=== PATIENT | female | born 1975 | race Two or more races ===

== ENCOUNTER 2025-10-10 09:55 | Emergency (ER) | payer MEDICAID, OTHER ==
[~2025-10-10] VITALS: Ht 170.2 cm; Wt 64.0 kg
--- NOTE | 2025-10-10 10:42 | ED.PDOC ---
History of Present Illness(SKN HPI Comments 49-year-old female who presents to the ED for chief complaint of animal bite. The patient states she was at friend's house and states she went outside or walker dog and states a pack of three dog attacked her. Patient has sustained a puncture food to the right and left arms and came to the ED for evaluation. The patient in the ED had noted multiple puncture wounds on the right and left arms with the otherwise noted bleeding controlled. The patient otherwise has stable vitals in the ED. The patient denies any other symptoms. Chief Complaint: Animal Bite Time Seen by MD: 10:32 History of Present Illness: Medications, Allergies Allergies: Coded Allergies: Sulfa Antibiotics (Verified Allergy, Unknown, 10/10/25) Information Source: Patient, Emergency Med Personnel Mode of Arrival: EMS Brought in by: EMS Past Medical History PAST MEDICAL HISTORY: Denies Surgical History: Denies all surgeries UTILIZATION REVIEW COORDINATOR History: Denies all UTILIZATION REVIEW COORDINATOR Hx Family History Family History: Reviewed,noncontributory to illness Social History Smoker: Non-Smoker Alcohol: Denies ETOH Use Drugs: Denies Drug Use Constitutional: denies: chills, diaphoresis, fatigue, fever, malaise, sweats, weakness, others EENTM: denies: blurred vision, double vision, ear bleeding, ear discharge, ear drainage, ear pain, ear ringing, eye pain, eye redness, hearing loss, mouth pain, mouth swelling, nasal discharge, nose bleeding, nose congestion, nose pain, photophobia, tearing, throat pain, throat swelling, voice changes, others Respiratory: denies: cough, hemoptysis, orthopnea, SOB at rest, shortness of breath, SOB with excertion, stridor, wheezing, others Cardiovascular: denies: chest pain, dizzy spells, diaphoresis, Dyspnea on exertion, edema, irregular heart beat, left arm pain, lightheadedness, palpitations, PND, syncope, others Gastrointestinal: denies: abdomen distended, abdominal pain, blood streaked bowels, constipated, diarrhea, dysphagia, difficulty swallowing, hematemesis, melena, nausea, poor appetite, poor fluid intake, rectal bleeding, rectal pain, vomiting, others Genitourinary: denies: abnormal vagina bleeding, burning, dyspareunia, dysuria, flank pain, frequency, hematuria, incontinence, pain, , vagina discharge, urgency, others Neurological: denies: dizziness, fainting, headache, left sided numbness, left sided weakness, numbness, paresthesia, pre-existing deficit, right sided numbness, right sided weakness, seizure, speech problems, tingling, tremors, weakness, others Musculoskeletal: denies: back pain, gout, joint pain, joint swelling, muscle pain, muscle stiffness, neck pain, others Integumetry: reports: bruises, wounds (Left and right arm); denies: change in color, change in hair/nails, dryness, laceration, lesions, lumps, rash, others Allergic/Immunocompromised: denies: Difficulty Healing, Frequent Infections, Hives, Itching, others Hematologic/Lymphatic: denies: anemia, blood clots, easy bleeding, easy bruising, swollen glands, others Endocrine: denies: excessive hunger, excessive sweating, excessive thirst, excessive urination, flushing, intolerance to cold, intolerance to heat, unexplained weight gain, unexplained weight loss, others Psychiatric: denies: anxiety, bipolar disorder, depression, hopeless, panic disorder, schizophrenia, sleepless, suicidal, others All Other Systems: Reviewed and Negative Physical Exam General Appearance: No Apparent Distress, Normal HEENT: Normal ENT Inspection, Pharynx Normal, TMs Normal Neck: Full Range of Motion, Non-Tender, Normal, Normal Inspection Respiratory: Chest Non-Tender, Lungs Clear, No Accessory Muscle Use, No Respiratory Distress, Normal Breath Sounds Cardiovascular: No Edema, No JVD, No Murmur, No Gallop, Normal Peripheral Pulses, Regular Rate/Rhythm Breast Exam: Deferred Gastrointestinal: No Organomegaly, Non Tender, No Pulsatile Mass, Normal Bowel Sounds, Soft Genitalia: Deferred Pelvic: Deferred Rectal: Deferred Extremities: No calf tenderness, Normal capillary refill, Normal inspection, Normal range of motion, Non-tender, No pedal edema Musculoskeletal : Apperance: Normal Neurologic: Alert, it security manager II-XII nml as Tested, No Motor Deficits, Normal Affect, Normal Mood, No Sensory Deficits Cerebellar Function: Normal Reflexes: Normal Skin: Wounds (Right forearm two puncture wounds to distal forearm, two puncture wounds to the lateral epicondyle of right forearm has two puncture wounds endorsed her forearm) Lymphatic: No Adenopathy Was a procedure done? Was a procedure done?: No Differential Diagnosis (INTG) Differential Diagnosis: Abrasion, Cellulitis, Puncture Wound, Other (Animal bitw) Abscess: Abscess, Bacteremia, Cellulitis X-Ray, Labs, Meds, VS Vital Signs Date Time Temp Pulse Resp B/P (MAP) Pulse Ox O2 Delivery O2 Flow Rate FiO2 10/10/25 11:28 93 17 148/78 10/10/25 10:05 98.2 79 16 137/60 99 98.2 Current Medications Medications (Trade) Dose Ordered Sig/Glenis Route Start Time Stop Time Status Last Admin Diphtheria/ Tetanus/Acell Pertussis (Boostrix T-Dap) 0.5 ml ONCE ONCE IM 10/10/25 10:45 10/10/25 10:46 DC 10/10/25 11:32 Neomycin/ Polymyxin/ Bacitracin (Triple Antibiotic) 1 applic ONCE ONCE TOP 10/10/25 10:45 10/10/25 10:46 DC 10/10/25 11:21 Morphine Sulfate 4 mg ONCE ONCE IM 10/10/25 11:15 10/10/25 11:16 DC 10/10/25 11:28 [place] [address] Ph: [phone] DIAGNOSTIC IMAGING Diagnostic Imaging Report : [id number] Signed PATIENT: MANDO MOCTEZUMAACCT: [id number] UNIT: [id number] : 1975 LOC: ER ROOM / BED: / AGE / SEX: 49 / F ADM STATUS: REG ER SERVICE 1032 ORDERING PHYSICIAN: ALEXANDRA ALFARO NP PROCEDURE(s): RHAN - R HAND 3 VIEW XRAY REASON: dog bite. ORDER NUMBER(s): [id number], ACCESSION NUMBER(s): [id number] Indication: dog bite. Technique: XY R FOREARM XRAY, XY R HAND 3 VIEW XRAYXY Comparison: None FINDINGS/IMPRESSION: No radiographic evidence for acute fracture or dislocation. Extensive soft tissue emphysema and edema within the right forearm. No radiopaque foreign body seen. The soft tissue emphysema is most pronounced along the volar aspect of the right forearm tissues Soft tissue emphysema and edema along the dorsal aspect of the right wrist, hand. ATED BY: SHAKEEL WILKINSON MD DICTATED DATE/TIME: 10/10/251227 SIGNED BY: SHAKEEL WILKINSON MD SIGNED DATE/TIME: 10/10/251227 CC: [place] [address] Ph: [phone] DIAGNOSTIC IMAGING Diagnostic Imaging Report : [id number] Signed PATIENT: ADRY MOCTEZUMAT: [id number] UNIT: [id number] : 1975 LOC: ER ROOM / BED: / AGE / SEX: 49 / F ADM STATUS: REG ER SERVICE 103 ORDERING PHYSICIAN: ALEXANDRA ALFARO NP PROCEDURE(s): LFOR - L FOREARM XRAY REASON: dog bite. ORDER NUMBER(s): [id number], ACCESSION NUMBER(s): [id number] Indication: dog bite. Technique: XY L FOREARM XRAYXY Comparison: None FINDINGS/IMPRESSION: No radiographic evidence for acute fracture or dislocation. Soft tissue edema along the mid ulnar aspect of the left forearm. No radiopaque foreign body. ATED BY: SHAKEEL WILKINSON MD DICTATED DATE/TIME: 10/10/251226 SIGNED BY: SHAKEEL WILKINSON MD SIGNED DATE/TIME: 10/10/251226 CC: [place] [address] Ph: [phone] DIAGNOSTIC IMAGING Diagnostic Imaging Report : [id number] Signed PATIENT: ADRY MOCTEZUMAT: [id number] UNIT: [id number] : 1975 LOC: ER ROOM / BED: / AGE / SEX: 49 / F ADM STATUS: REG ER SERVICE 1032 ORDERING PHYSICIAN: ALEXANDRA ALFARO NP PROCEDURE(s): RFOR - R FOREARM XRAY REASON: dog bite. ORDER NUMBER(s): [id number], ACCESSION NUMBER(s): [id number] Indication: dog bite. Technique: XY R FOREARM XRAY, XY R HAND 3 VIEW XRAYXY Comparison: None FINDINGS/IMPRESSION: No radiographic evidence for acute fracture or dislocation. Extensive soft tissue emphysema and edema within the right forearm. No radiopaque foreign body seen. The soft tissue emphysema is most pronounced along the volar aspect of the right forearm tissues Soft tissue emphysema and edema along the dorsal aspect of the right wrist, hand. ATED BY: SHAKEEL WILKINSON MD DICTATED DATE/TIME: 10/10/251227 SIGNED BY: SHAKEEL WILKINSON MD SIGNED DATE/TIME: 10/10/251227 CC: X-Ray, Labs, Meds, VS Comment Patient arrives alert and oriented, ABC's intact, afebrile, vital signs stable, saturating well in room air Diagnostic imaging ordered by me and results interpreted by radiology : Left forearm x-ray, right forearm x-ray, right hand x-ray Labs in the ED showed (pertinent+ and then pertinent-) Patient was given: Tetanus toxoid 0.5 mg IM, morphine 4 mg, neomycin bacitracin one application topical. Tolerated medications with no adverse reaction. Additional MDM Review of External, Non-ED records: External records reviewed. Discussion with independent historian (EMS, family) history obtained from the patient/parents (if applicable) at bedside Chronic conditions affecting care: None Social determinants of health affecting care: None Consideration of admission (observation or admission): I considered escalation of care to admission for this patient, however given the reassuring workup, the patient is safe for outpatient management. Discussion with the Radiology: No Tests considered but not performed: Prescription medication considered but not given: 12 lead EKG interpretation: Time of 1ST Reevaluation: 11:05 Reevaluation 1ST: Unchanged Patient Education/Counseling: Diagnosis, Treatment Family Education/Counseling: No Family Present SEPSIS Sepsis Screen Date sepsis recognized/suspect: Oct 10, 2025 Time Sepsis recognized/suspect: 1000 Recent Procedure: No On Antibiotic Therapy: No Respiratory Rate >20: No Heart Rate >90: No Temp<36 C (96.8 F) or >38.3 C: No SBP <90 or MAP <65 mmHG: No New Acute Mental Status Change: No Is the patient on CPAP, BIPAP,: No Physician Orders R Forearm Xray (10/10/25 10:32) L Forearm Xray (10/10/25 10:32) R Hand 3 View Xray (10/10/25 10:32) Cleanse Wound With Mild Soap A (10/10/25 10:32) Cleanse Wound With Ns (10/10/25 10:32) Non-Adherent Dressing (10/10/25 10:32) Vital Signs Date Time Temp Pulse Resp B/P (MAP) Pulse Ox O2 Delivery O2 Flow Rate FiO2 10/10/25 11:28 93 17 148/78 10/10/25 10:05 98.2 79 16 137/60 99 98.2 Medications Medications Dose Ordered Sig/Glenis Route Start Time Stop Time Status Last Admin Dose Admin Diphtheria/ Tetanus/Acell Pertussis 0.5 ml ONCE ONCE IM 10/10/25 10:45 10/10/25 10:46 DC 10/10/25 11:32 Morphine Sulfate 4 mg ONCE ONCE IM 10/10/25 11:15 10/10/25 11:16 DC 10/10/25 11:28 Neomycin/ Polymyxin/ Bacitracin 1 applic ONCE ONCE TOP 10/10/25 10:45 10/10/25 10:46 DC 10/10/25 11:21 Departure 1 Departure Time of Disposition: 12:42 Impression: Primary Impression: Dog bite Qualified Codes: W54.0XXA - Bitten by dog, initial encounter Disposition: HOME / SELF CARE / HOMELESS Condition: Fair e-Prescriptions Naproxen (Naproxen) 500 Mg Tab 500 MG PO BIDP PRN for 10 Days, #20 TAB 0 Refills Prov: ALEXANDRA ALFARO NP 10/10/25 Amoxicillin & Pot Clavulanate (AUGMENTIN TABLET) 875 Mg Tb 875 MG PO BID for 7 Days, #14 TAB 0 Refills Prov: ALEXANDRA ALFARO NP 10/10/25 Critical Care Note Critical Care Time?: No Stability Stability form required: No Heart Score Heart Score: Heart Score Response (Comments) Value History N/A 0 EKG N/A 0 Age N/A 0 Risk Factors N/A 0 Troponin N/A 0 Total 0 I personally scribed for ALEXANDRA ALFARO NP ([facility]ICK) on 10/10/25 at 10:42. Electronically submitted by Daniela Recinos ([email or web address]). I personally scribed for ALEXANDRA ALFARO NP (DICK) on 10/10/25 at 10:42. Electronically submitted by Daniela Recinos ([facility]). I personally scribed for ALEXANDRA ALFARO NP ([employer]) on 10/10/25 at 11:39. Electronically submitted by Daniela Recinos ([facility]). I personally scribed for ALEXANDRA ALFARO NP ([employer]) on 10/10/25 at 12:38. Electronically submitted by Daniela Recinos ([email or web address]). ALEXANDRA ALFARO NP Oct 10, 2025 10:42
[2025-10-10] MEDS ORDERED: MORPHINE SULFATE 4 MG/ML SYR/VIAL IV ONE (10:45)
[2025-10-10] MEDS: NEOMYCIN-BACITRACIN-POLYM UNITDOSE PKG TOP OINT TOP ONE (11:21)
[2025-10-10] MEDS: MORPHINE SULFATE 4 MG/ML SYR/VIAL IM ONE (11:28)
[2025-10-10] MEDS: TETANUS-DIPTH-ACEL PERTUSSIS 0.5ML SYR Tdap IM ONE (11:32)
--- NOTE | 2025-10-10 12:24 | DVH ---
Indication: dog bite. Technique: XY L FOREARM XRAYXY Comparison: None FINDINGS/IMPRESSION: No radiographic evidence for acute fracture or dislocation. Soft tissue edema along the mid ulnar aspect of the left forearm. No radiopaque foreign body.
--- NOTE | 2025-10-10 12:25 | DVH ---
Indication: dog bite. Technique: XY R FOREARM XRAY, XY R HAND 3 VIEW XRAYXY Comparison: None FINDINGS/IMPRESSION: No radiographic evidence for acute fracture or dislocation. Extensive soft tissue emphysema and edema within the right forearm. No radiopaque foreign body seen. The soft tissue emphysema is most pronounced along the volar aspect of the right forearm tissues Soft tissue emphysema and edema along the dorsal aspect of the right wrist, hand.
[2025-10-10] MEDS ORDERED: NAPR-746 PO (12:43)
[2025-10-10] MEDS ORDERED: AUG875T PO (12:43)
[2025-10-10 13:07] VITALS: BP 132/89; PULSE 68; RESP 16; TEMP 98.7; O2SAT 97
== END 2025-10-10 13:09 | disposition home or self-care (01) ==
LOC: ER 09:55 → EDBD 09:55 → ER 13:09
DX: S51.831A Puncture wound without foreign body of right forearm, initial encounter (principal); Z88.2 Allergy status to sulfonamides; W54.0XXA Bitten by dog, initial encounter; Y93.89 Activity, other specified; Y92.89 Other specified places as the place of occurrence of the external cause; Y99.8 Other external cause status
CPT/HCPCS: 73090; 73130; 90471; 90715; 96372; 99284; J2270

== ENCOUNTER 2025-10-10 14:11 | Emergency (ER) | payer MEDICAID ==
[~2025-10-10] VITALS: Ht 162.6 cm; Wt 65.3 kg
[~2025-10-10 14:11] MED LIST: AUG875T PO; NAPR-746 PO
--- NOTE | 2025-10-10 15:03 | ED.PDOC ---
History of Present Illness(SKN HPI Comments Pleasant 49-year-old female that presents again for a wound check to the right upper extremity. Patient requesting that the wounds be rewrapped as the dressings fell after the patient was discharged from the ER. No other complaint or concern Chief Complaint: Animal Bite Time Seen by MD: 14:44 History of Present Illness: Medications, Allergies Allergies: Coded Allergies: Sulfa Antibiotics (Verified Allergy, Unknown, 10/10/25) Home Meds Active Scripts Naproxen (Naproxen) 500 Mg Tab, 500 MG PO BIDP PRN for 10 Days, #20 TAB 0 Refills Prov:ALEXANDRA ALFARO NP 10/10/25 Amoxicillin & Pot Clavulanate (AUGMENTIN TABLET) 875 Mg Tb, 875 MG PO BID for 7 Days, #14 TAB 0 Refills Prov:ALEXANDRA ALFARO MACHINE OPERATOR FARMWORKER 10/10/25 Information Source: Patient Mode of Arrival: EMS Past Medical History PAST MEDICAL HISTORY: Denies Surgical History: Denies all surgeries INTERNAL MEDICINE VETERINARY TECHNICIAN History: Denies all INTERNAL MEDICINE VETERINARY TECHNICIAN Hx Family History Family History: Reviewed,noncontributory to illness Social History Smoker: Non-Smoker Alcohol: Denies ETOH Use Drugs: Denies Drug Use Constitutional: denies: chills, diaphoresis, fatigue, fever, malaise, sweats, weakness, others EENTM: denies: blurred vision, double vision, ear bleeding, ear discharge, ear drainage, ear pain, ear ringing, eye pain, eye redness, hearing loss, mouth pain, mouth swelling, nasal discharge, nose bleeding, nose congestion, nose pain, photophobia, tearing, throat pain, throat swelling, voice changes, others Respiratory: denies: cough, hemoptysis, orthopnea, SOB at rest, shortness of breath, SOB with excertion, stridor, wheezing, others Cardiovascular: denies: chest pain, dizzy spells, diaphoresis, Dyspnea on exertion, edema, irregular heart beat, left arm pain, lightheadedness, palpitations, PND, syncope, others Gastrointestinal: denies: abdomen distended, abdominal pain, blood streaked bowels, constipated, diarrhea, dysphagia, difficulty swallowing, hematemesis, melena, nausea, poor appetite, poor fluid intake, rectal bleeding, rectal pain, vomiting, others Genitourinary: denies: abnormal vagina bleeding, burning, dyspareunia, dysuria, flank pain, frequency, hematuria, incontinence, pain, , vagina discharge, urgency, others Neurological: denies: dizziness, fainting, headache, left sided numbness, left sided weakness, numbness, paresthesia, pre-existing deficit, right sided numbness, right sided weakness, seizure, speech problems, tingling, tremors, weakness, others Musculoskeletal: denies: back pain, gout, joint pain, joint swelling, muscle pain, muscle stiffness, neck pain, others Integumetry: denies: bruises, change in color, change in hair/nails, dryness, laceration, lesions, lumps, rash, wounds, others Allergic/Immunocompromised: denies: Difficulty Healing, Frequent Infections, Hives, Itching, others Hematologic/Lymphatic: denies: anemia, blood clots, easy bleeding, easy bruising, swollen glands, others Endocrine: denies: excessive hunger, excessive sweating, excessive thirst, excessive urination, flushing, intolerance to cold, intolerance to heat, unexplained weight gain, unexplained weight loss, others Psychiatric: denies: anxiety, bipolar disorder, depression, hopeless, panic disorder, schizophrenia, sleepless, suicidal, others All Other Systems: Reviewed and Negative Physical Exam General Appearance: No Apparent Distress, Normal HEENT: Normal ENT Inspection, Pharynx Normal, TMs Normal Neck: Full Range of Motion, Non-Tender, Normal, Normal Inspection Respiratory: Chest Non-Tender, Lungs Clear, No Accessory Muscle Use, No Respiratory Distress, Normal Breath Sounds Cardiovascular: No Edema, No JVD, No Murmur, No Gallop, Normal Peripheral Pulses, Regular Rate/Rhythm Breast Exam: Deferred Gastrointestinal: No Organomegaly, Non Tender, No Pulsatile Mass, Normal Bowel Sounds, Soft Genitalia: Deferred Pelvic: Deferred Rectal: Deferred Extremities: No calf tenderness, Normal capillary refill, Normal inspection, Normal range of motion, Non-tender, No pedal edema Musculoskeletal : Apperance: Normal Neurologic: Alert, skeins yarn examiner II-XII nml as Tested, No Motor Deficits, Normal Affect, Normal Mood, No Sensory Deficits Cerebellar Function: Normal Reflexes: Normal Skin: Dry, Normal Color, Warm Lymphatic: No Adenopathy Was a procedure done? Was a procedure done?: No Differential Diagnosis (INTG) Abscess: Abscess, Bacteremia, Cellulitis X-Ray, Labs, Meds, VS Vital Signs Date Time Temp Pulse Resp B/P (MAP) Pulse Ox O2 Delivery O2 Flow Rate FiO2 10/10/25 14:37 97.8 95 16 119/79 96 97.8 X-Ray, Labs, Meds, VS Comment Patient arrives alert and oriented, ABC's intact, afebrile, vital signs stable, saturating well in room air consumer services consultant consult Diagnostic imaging ordered by me and results interpreted by radiology : Labs in the ED showed (pertinent+ and then pertinent-) Patient was given:_. Tolerated medications with no adverse reaction. Additional MDM Review of External, Non-ED records: External records reviewed. Discussion with independent historian (EMS, family) history obtained from the patient/parents (if applicable) at bedside Chronic conditions affecting care: None Social determinants of health affecting care: None Consideration of admission (observation or admission): I considered escalation of care to admission for this patient, however given the reassuring workup, the patient is safe for outpatient management. Discussion with the Radiology: No Tests considered but not performed: Prescription medication considered but not given: 12 lead EKG interpretation: Time of 1ST Reevaluation: 15:00 Reevaluation 1ST: Unchanged Patient Education/Counseling: Diagnosis, Treatment Family Education/Counseling: No Family Present SEPSIS Sepsis Screen Date sepsis recognized/suspect: Oct 10, 2025 Time Sepsis recognized/suspect: 1421 Recent Procedure: No On Antibiotic Therapy: No Respiratory Rate >20: No Heart Rate >90: Yes Temp<36 C (96.8 F) or >38.3 C: No SBP <90 or MAP <65 mmHG: No New Acute Mental Status Change: No Is the patient on CPAP, BIPAP,: No Physician Orders * Gym Teacher Consult (10/10/25 ) Vital Signs Date Time Temp Pulse Resp B/P (MAP) Pulse Ox O2 Delivery O2 Flow Rate FiO2 10/10/25 14:37 97.8 95 16 119/79 96 97.8 Departure 1 Departure Time of Disposition: 15:03 Impression: Primary Impression: Visit for wound check Disposition: 01 HOME / SELF CARE / HOMELESS Condition: Stable Discharged With: Self Critical Care Note Critical Care Time?: No Stability Stability form required: No Heart Score Heart Score: Heart Score Response (Comments) Value History N/A 0 EKG N/A 0 Age N/A 0 Risk Factors N/A 0 Troponin N/A 0 Total 0 I personally scribed for ALEXANDRA ALFARO NP ([email or web address]) on 10/10/25 at 15:40. Electronically submitted by Daniela Recinos ([email or web address]). ALEXANDRA ALFARO NP Oct 10, 2025 15:03
[2025-10-10 16:29] VITALS: BP 132/78; PULSE 78; RESP 16; TEMP 98.7; O2SAT 97
== END 2025-10-10 16:31 | disposition home or self-care (01) ==
LOC: EDBD 14:11 → ER 14:11
DX: S61.451D Open bite of right hand, subsequent encounter (principal); Z48.00 Encounter for change or removal of nonsurgical wound dressing; Z88.2 Allergy status to sulfonamides; W19.XXXD Unspecified fall, subsequent encounter